=== PATIENT | male | born 1950 | race Caucasian/White ===

== ENCOUNTER 2024-06-14 11:23 | Inpatient (IN) ==
[2024-06-14] MEDS ORDERED: Heparin 1,000 UNIT/ML 10 ml (10,000 UNITS) CATHLAB/DIALYSIS ONE (11:27)
[2024-06-14] MEDS ORDERED: VERAPAMIL 2.5 MG/ML 2 ML VIAL ** 5 mg/2 ml ONE (11:27)
[2024-06-14] MEDS ORDERED: fentaNYL 250 mcg/5 ml 50 MCG/ML 5 ml VIAL (250 MCG) ONE (11:27)
[2024-06-14] MEDS ORDERED: Midazolam 5 mg/5 ml VIAL 1 mg/ml 5 ml VIAL (5 mg) ONE ×2 (11:27→11:59)
[2024-06-14] MEDS ORDERED: Iohexol 350 (CONTRAST) 200 ML MDV IV ONE (11:28)
[2024-06-14] MEDS ORDERED: Heparin 2 UNITS/ML 1000 mls 2,000 ML IV ONE (11:28)
[2024-06-14] MEDS ORDERED: nitroGLYCERIN DRIP 25,000 MCG/250 ML BTL ONE (11:28)
[2024-06-14] MEDS ORDERED: Lidocaine 1% w EPI 1:100,000 MDV 20 ML VIAL ONE (11:28)
[2024-06-14] MEDS ORDERED: Bivalirudin 250 MG VIAL ONE (11:29)
[2024-06-14] MEDS: Heparin - STEMI 5,000 UNITS/ML 1 ml VIAL IV ONE (11:39)
[2024-06-14 11:49] LABS: ABS Basophils 0.1 10^3/uL (0.0-0.1); ABS Eosinophils 0.1 10^3/uL (0.0-0.5); ABS Lymphocytes 3.4 10^3/uL (1.0-4.8); ABS Monocytes 0.8 10^3/uL (0.0-1.1); ABS Neutrophils 7.5 10^3/uL (1.5-7.6); Hematocrit 43.8 % (38-53); Hemoglobin 14.5 g/dL (13.2-16.3); Lymphocyte % 28.4 %; Mean Corpuscular Hemoglobin 29.4 pg (27-33); Mean Corpuscular Hgb Conc 33.2 g/dL (31-36); Mean Corpuscular Volume 88.5 fL (80-97); Platelet Count 200 10^3/uL (150-450); Red Blood Count 4.94 10^6/uL (4.06-5.63); White Blood Count 11.9 10^3/uL (3.6-10.2)
[2024-06-14] MEDS ORDERED: fentaNYL 100 mcg/2 ml 50 MCG/ML VIAL ONE (11:59)
[2024-06-14 12:06] LABS: Activated Partial Thrombo Time 27.5 seconds (26.0-38.0); INR 0.97 (0.85-1.14)
[2024-06-14] MEDS ORDERED: Magnesium Sulfate 2 gm BAG 2 GM/50 ML BAG ONE (12:18)
[2024-06-14] MEDS ORDERED: DOPamine 800 MG/250 ML IVPREMX 800 MG/250 ML ML CENTR ONE (12:21)
[2024-06-14 12:42] LABS: Albumin 4.3 g/dL (3.2-5.2); Albumin/Globulin Ratio 1.7 (1-3); Calcium 9.2 mg/dL (8.6-10.3); Creatinine, Serum 0.97 mg/dL (0.67-1.17); Globulin 2.5 g/dL (2-4); Potassium 3.8 mmol/L (3.5-5.0); Total Bilirubin 0.6 mg/dL (0.2-1.0); Total Protein 6.8 g/dL (6.4-8.9); eGFR CKD-EPI 82.9 (>60)
[2024-06-14] MEDS ORDERED: Furosemide 40 mg/4 ml IV VIAL ONE (12:59)
[2024-06-14] MEDS: NS 0.9% 1000 ml BAG 1,000 ML IV SCH (14:03)
[2024-06-14 18:10] LABS: Magnesium 2.2 mg/dL (1.9-2.7); Potassium 4.3 mmol/L (3.5-5.0)
[2024-06-14] MEDS: Phenylephrine 40 mcg/mL 10mL (400mcg) SYRINGE IV ONE (18:15)
[2024-06-14] MEDS: Atropine 0.1 MG/ML 10 ml SYR (1 mg) IV PUSH ONE (18:16)
[2024-06-14 18:32] LABS: ABS Basophils 0.1 10^3/uL (0.0-0.1); ABS Lymphocytes 2.2 10^3/uL (1.0-4.8); ABS Monocytes 1.1 10^3/uL (0.0-1.1); ABS Neutrophils 14.9 10^3/uL (1.5-7.6); ABS Nucleated RBC 0.02 10^3/ul; Eosinophil % 0.1 %; Hematocrit 40.7 % (38-53); Hemoglobin 13.8 g/dL (13.2-16.3); Lymphocyte % 12.2 %; Mean Corpuscular Hemoglobin 29.7 pg (27-33); Mean Corpuscular Volume 87.4 fL (80-97); Mean Platelet Volume 7.8 fL (7.5-11.2); Nucleated Red Blood Cells % 0.1 %/100WBC (0.0-0.8); Platelet Count 221 10^3/uL (150-450); Red Blood Count 4.65 10^6/uL (4.06-5.63); Red Cell Distribution Width 13.2 % (12-17); White Blood Count 18.3 10^3/uL (3.6-10.2)
[2024-06-14 19:04] LABS: High Sens Troponin Baseline > 24000 pg/mL (<20)
[2024-06-14] MEDS: Phenylephrine 40 mcg/mL 10mL (400mcg) SYRINGE ONE (19:13)
[2024-06-14] MEDS: Norepinephrine 4 MG/250mL D5W 4,000 MCG/250 ML BAG IV SCH ×2 (19:16→21:58)
[2024-06-14] MEDS: Norepinephrine 4 MG/250mL D5W 4,000 MCG/250 ML BAG IV ONE (19:17)
[2024-06-14 19:18] LABS: ALT 62 U/L (7-52); AST 305 U/L (13-39); Albumin 3.8 g/dL (3.2-5.2); Albumin/Globulin Ratio 1.7 (1-3); Alkaline Phosphatase 60 U/L (35-149); Anion Gap 10 mmol/L (2-16); Blood Urea Nitrogen 27 mg/dL (6-24); CO2 Carbon Dioxide 22 mmol/L (22-32); Calcium 8.8 mg/dL (8.6-10.3); Chloride 107 mmol/L (101-111); Creatinine, Serum 0.91 mg/dL (0.67-1.17); Globulin 2.2 g/dL (2-4); Glucose 160 mg/dL (70-100); Potassium 4.1 mmol/L (3.5-5.0); Sodium 139 mmol/L (135-145); Total Bilirubin 0.5 mg/dL (0.2-1.0); eGFR CKD-EPI 89.5 (>60)
[2024-06-14 19:33] LABS: Activated Partial Thrombo Time 28.7 seconds (26.0-38.0); INR 1.06 (0.85-1.14)
[2024-06-14 20:42] LABS: High Sensitivity Troponin 1 Hr > 24000 pg/mL (<20)
[2024-06-15 04:37] LABS: ABS Basophils 0.2 10^3/uL (0.0-0.1); ABS Monocytes 1.5 10^3/uL (0.0-1.1); ABS Neutrophils 18.1 10^3/uL (1.5-7.6); Eosinophil % 0.1 %; Hemoglobin 13.4 g/dL (13.2-16.3); Lymphocyte % 8.9 %; Mean Corpuscular Hemoglobin 29.2 pg (27-33); Mean Corpuscular Hgb Conc 33.4 g/dL (31-36); Mean Corpuscular Volume 87.4 fL (80-97); Mean Platelet Volume 8.2 fL (7.5-11.2); Platelet Count 236 10^3/uL (150-450); Red Blood Count 4.58 10^6/uL (4.06-5.63); Red Cell Distribution Width 13.3 % (12-17); White Blood Count 21.9 10^3/uL (3.6-10.2)
[2024-06-15 07:03] LABS: Albumin 3.8 g/dL (3.2-5.2); Albumin/Globulin Ratio 1.7 (1-3); Calcium 8.9 mg/dL (8.6-10.3); Creatinine, Serum 0.96 mg/dL (0.67-1.17); Globulin 2.2 g/dL (2-4); HDL Cholesterol 38.5 mg/dL; Potassium 4.2 mmol/L (3.5-5.0)
[2024-06-15] MEDS: Sulfur Hexaflouride MICROSPHR 25 MG VIAL IV PRN (08:44)
[2024-06-15] MEDS ORDERED: Aspirin EC 81 mg TAB.EC (enteric coated) PO SCH (09:00)
[2024-06-15] MEDS: Enoxaparin 100 MG/ML SYR SUBCUT SCH (13:22)
[2024-06-15] MEDS: Magnesium Sulfate 2 gm BAG 2 GM/50 ML BAG IVPB ONE (16:39)
[2024-06-15 17:37] LABS: Magnesium 2.2 mg/dL (1.9-2.7); Potassium 4.1 mmol/L (3.5-5.0)
[2024-06-15] MEDS: Amiodarone 150 mg IVPREMIX 150 MG/100 ML BAG IV ONE ×2 (23:40)
[2024-06-15] MEDS: Magnesium Sulfate IV 1GM/100ML 1 GM/100 ML BAG IV ONE (23:40)
[2024-06-16 00:28] LABS: Calcium 8.5 mg/dL (8.6-10.3); Creatinine, Serum 0.92 mg/dL (0.67-1.17); Magnesium 2.3 mg/dL (1.9-2.7); Potassium 4.1 mmol/L (3.5-5.0); eGFR CKD-EPI 88.4 (>60)
[2024-06-16] MEDS: Albumin Human 5% 12.5 GM/250 ML BTL IV ONE (00:48)
[2024-06-16] MEDS: Amiodarone 360 MG IVPREMIX 360 MG/200 ML BAG IV SCH ×2 (02:05→09:38)
[2024-06-16] MEDS ORDERED: Sodium Bicarbonate 8.4% SYR 50 ml SYRINGE ONE (02:33)
[2024-06-16] MEDS ORDERED: EPINEPHrine SYR 0.1MG/ML 10 ml SYRINGE IV ONE (02:33)
[2024-06-16] MEDS ORDERED: Amiodarone IV 150 mg/3 ml VIAL ONE (02:33)
[2024-06-16] MEDS: Norepinephrine 4 MG/250mL NS 4,000 MCG/250 ML BAG IV SCH (02:50)
[2024-06-16] MEDS: Norepinephrine 4 MG/250mL D5W 4,000 MCG/250 ML BAG IV ONE (02:59)
[2024-06-16] MEDS: Prochlorperazine 5 mg/ml 2 ml VIAL (10 mg) IV PRN (03:48)
[2024-06-16 04:37] LABS: ABS Lymphocytes 1.4 10^3/uL (1.0-4.8); ABS Neutrophils 19.2 10^3/uL (1.5-7.6); ABS Nucleated RBC 0.01 10^3/ul; Eosinophil % 0.1 %; Hematocrit 39.8 % (38-53); Hemoglobin 13.2 g/dL (13.2-16.3); Lymphocyte % 6.6 %; Mean Corpuscular Hemoglobin 29.7 pg (27-33); Mean Corpuscular Hgb Conc 33.1 g/dL (31-36); Mean Corpuscular Volume 89.8 fL (80-97); Mean Platelet Volume 8.6 fL (7.5-11.2); Platelet Count 176 10^3/uL (150-450); Red Blood Count 4.43 10^6/uL (4.06-5.63); Red Cell Distribution Width 13.8 % (12-17); White Blood Count 21.6 10^3/uL (3.6-10.2)
[2024-06-16 04:52] LABS: Albumin 3.6 g/dL (3.2-5.2); Albumin/Globulin Ratio 1.6 (1-3); Calcium 8.1 mg/dL (8.6-10.3); Creatinine, Serum 1.09 mg/dL (0.67-1.17); Globulin 2.2 g/dL (2-4); Magnesium 2.4 mg/dL (1.9-2.7); Potassium 4.1 mmol/L (3.5-5.0); Total Bilirubin 1.4 mg/dL (0.2-1.0); Total Protein 5.8 g/dL (6.4-8.9); eGFR CKD-EPI 72.1 (>60)
[2024-06-16] MEDS: Lidocaine PATCH 5% PATCH TRANSDERM ONE (04:56)
[2024-06-16] MEDS: Acetaminophen IV 1 GM/100ML 1,000 MG/100 ML BAG IV PRN (04:58)
[2024-06-16] MEDS ORDERED: Naloxone Nasal Spray 4 MG/0.1 ML NASAL.SPR INTRANASAL PRN (07:52)
[2024-06-16] MEDS: Morphine 2 MG/ML SYRINGE IV PRN (09:38)
[2024-06-16] MEDS: cefTRIAXone 1 gm/50 mL D5W 1 GM/50 ML BAG IV SCH (13:27)
[2024-06-16] MEDS ORDERED: cefTRIAXone 1 gm/50 mL D5W 1 GM/50 ML BAG IV SCH (21:00)
[2024-06-17 04:21] LABS: Hematocrit 36.7 % (38-53); Mean Corpuscular Hgb Conc 32.7 g/dL (31-36); Mean Corpuscular Volume 88.7 fL (80-97); Mean Platelet Volume 8.4 fL (7.5-11.2); Platelet Count 150 10^3/uL (150-450); Red Blood Count 4.14 10^6/uL (4.06-5.63); Red Cell Distribution Width 13.4 % (12-17); White Blood Count 18.4 10^3/uL (3.6-10.2)
[2024-06-17 05:59] LABS: Albumin 3.7 g/dL (3.2-5.2); Albumin/Globulin Ratio 1.8 (1-3); Calcium 8.2 mg/dL (8.6-10.3); Creatinine, Serum 1.06 mg/dL (0.67-1.17); Direct Bilirubin 0.2 mg/dL (0.03-0.18); Globulin 2.1 g/dL (2-4); Indirect Bilirubin 1.2 mg/dL (0.3-1.0); Magnesium 2.2 mg/dL (1.9-2.7); Potassium 4.1 mmol/L (3.5-5.0); Total Bilirubin 1.4 mg/dL (0.2-1.0); Total Protein 5.8 g/dL (6.4-8.9); eGFR CKD-EPI 74.6 (>60)
[2024-06-17 07:00] LABS: ABS Basophils 0.1 10^3/uL (0.0-0.1); ABS Lymphocytes 1.7 10^3/uL (1.0-4.8); ABS Monocytes 1.3 10^3/uL (0.0-1.1); ABS Neutrophils 15.3 10^3/uL (1.5-7.6); ABS Nucleated RBC 0.02 10^3/ul; Eosinophil % 0.1 %; Lymphocyte % 9.1 %; Nucleated Red Blood Cells % 0.1 %/100WBC (0.0-0.8)
[2024-06-17] MEDS: Amiodarone 400 mg TAB PO SCH (07:39)
[2024-06-17] MEDS: Enoxaparin 40 MG/0.4 ML SYR SUBCUT SCH (07:39)
[2024-06-17] MEDS: Lidocaine PATCH 5% PATCH TRANSDERM SCH (11:30)
[2024-06-18 04:36] LABS: ABS Basophils 0.1 10^3/uL (0.0-0.1); ABS Lymphocytes 1.2 10^3/uL (1.0-4.8); ABS Monocytes 1.2 10^3/uL (0.0-1.1); ABS Neutrophils 14.2 10^3/uL (1.5-7.6); Hematocrit 35.1 % (38-53); Hemoglobin 11.6 g/dL (13.2-16.3); Mean Corpuscular Hgb Conc 33.1 g/dL (31-36); Mean Corpuscular Volume 87.4 fL (80-97); Mean Platelet Volume 9.1 fL (7.5-11.2); Platelet Count 157 10^3/uL (150-450); Red Blood Count 4.01 10^6/uL (4.06-5.63); Red Cell Distribution Width 13.3 % (12-17); White Blood Count 16.6 10^3/uL (3.6-10.2)
[2024-06-18 04:59] LABS: Anion Gap 9 mmol/L (2-16); Blood Urea Nitrogen 40 mg/dL (6-24); CO2 Carbon Dioxide 25 mmol/L (22-32); Calcium 8.5 mg/dL (8.6-10.3); Chloride 100 mmol/L (101-111); Creatinine, Serum 1.05 mg/dL (0.67-1.17); Glucose 131 mg/dL (70-100); Magnesium 2.2 mg/dL (1.9-2.7); Potassium 3.8 mmol/L (3.5-5.0); Sodium 134 mmol/L (135-145); eGFR CKD-EPI 75.4 (>60)
[2024-06-18 08:53] LABS: % Iron Saturation 9 % (15-55); .Transferrin 183 mg/dL (203-362); Iron 24 ug/dL (50-212); Total Iron Binding Capacity 256 mcg/dL (250-450); Unsaturated Iron Binding 232 ug/dL
[2024-06-18] MEDS: Potassium Chlor 20 meq TAB.ER PO ONE (09:05)
[2024-06-18 09:16] LABS: Vitamin B12 223 pg/mL (180-914)
[2024-06-18 09:31] LABS: Folate > 20.00 ng/mL (5.90-24.80)
[2024-06-18 14:58] VITALS: BP 107/58
== END 2024-06-18 14:45 | disposition home or self-care (01) | DRG 321 ==
LOC: ED 11:23 → CHICATH 11:49 → ICU 11:49
PROVIDERS: ATTEND Internal Medicine